=== PATIENT | male | born 1975 | race Caucasian/White ===

== ENCOUNTER 2018-08-04 21:05 | Emergency (ER) | payer MEDICAID, OTHER ==
[~2018-08-04] VITALS: Ht 160 cm; Wt 71.3 kg
[2018-08-04 21:16] VITALS: Ht 160 cm; Wt 71.3 kg
--- NOTE | 2018-08-04 22:11 | ERD ---
ER Documentation Chief Complaint Chief Complaint chest pain x 3 days; worse today; does not radiate anywhere; no medical hx HPI Is a 42-year-old male who presents for evaluation of chest pain for the last 3 days. He endorses that the pain is left-sided, nonradiating, is constant, feels like there is "air," in that area. He has not had any trauma, etc. and improved pain, he has no exertional symptoms, he has had not had a fever. He has no cardiac history and no history of diabetes. ROS All systems reviewed and are negative except as per history of present illness. Allergies Allergies: Coded Allergies: No Known Allergy (Unverified , 02/26/12) PMhx/Soc History of Surgery: No Anesthesia Reaction: No Hx Neurological Disorder: No Hx Respiratory Disorders: No Hx Cardiac Disorders: No Hx Psychiatric Problems: No Hx Miscellaneous Medical Probl: No (NO KNOWN MEDICAL CONDITION) Hx Alcohol Use: No Hx Substance Use: No Hx Tobacco Use: No Physical Exam Vitals Vital Signs Date Temp Pulse Resp B/P (MAP) Pulse Ox O2 O2 Flow FiO2 Time Delivery Rate 08/04/18 73 18 107/73 95 Room Air 22:02 (84) 08/04/18 98.1 78 18 119/72 96 21:16 (88) Physical Exam Const: No acute distress Head: Atraumatic Eyes: Normal Conjunctiva ENT: Normal External Ears, Nose and Mouth. Neck: Full range of motion. No meningismus. Resp: Clear to auscultation bilaterally Cardio: Regular rate and rhythm, no murmurs Abd: Soft, non tender, non distended. Normal bowel sounds Skin: No petechiae or rashes Back: No midline or flank tenderness Ext: No cyanosis, or edema Neur: Awake and alert Psych: Normal Mood and Affect Result Diagram: 08/04/187 08/04/182216 Results 24 hrs Laboratory Tests Test 08/04/18 22:17 White Blood Count 10.1 10^3/ul Red Blood Count 4.51 10^6/ul Hemoglobin 14.0 g/dl Hematocrit 41.8 % Mean Corpuscular Volume 92.7 fl Mean Corpuscular Hemoglobin 31.0 pg Mean Corpuscular Hemoglobin Concent 33.5 g/dl Red Cell Distribution Width 12.5 % Platelet Count 296 10^3/UL Mean Platelet Volume 10.0 fl Immature Granulocytes % 0.300 % Neutrophils % 40.5 % Lymphocytes % 39.6 % Monocytes % 5.6 % Eosinophils % 13.4 % Basophils % 0.6 % Nucleated Red Blood Cells % 0.0 /100WBC Immature Granulocytes # 0.030 10^3/ul Neutrophils # 4.1 10^3/ul Lymphocytes # 4.0 10^3/ul Monocytes # 0.6 10^3/ul Eosinophils # 1.4 10^3/ul Basophils # 0.1 10^3/ul Nucleated Red Blood Cells # 0.0 10^3/ul Prothrombin Time 11.8 Sec Prothrombin Time Ratio 0.9 INR International Normalized Ratio 0.86 Sodium Level 141 mmol/L Potassium Level Pending Chloride Level 103 mmol/L Carbon Dioxide Level 28 mmol/L Anion Gap 10 Blood Urea Nitrogen 19 mg/dl Creatinine 0.95 mg/dl Est Glomerular Filtrat Rate mL/min > 60 mL/min Glucose Level 101 mg/dl Calcium Level 9.4 mg/dl Total Bilirubin 0.1 mg/dl Direct Bilirubin 0.00 mg/dl Indirect Bilirubin 0.1 mg/dl Aspartate Amino Transf (AST/SGOT) 18 IU/L Alanine Aminotransferase (ALT/SGPT) 28 IU/L Alkaline Phosphatase 93 IU/L Troponin I < 0.012 ng/ml Total Protein 7.6 g/dl Albumin 4.2 g/dl Globulin 3.40 g/dl Albumin/Globulin Ratio 1.23 Lipase 75 U/L Procedures/MDM 42-year-old male who presents for evaluation of chest pain. His pain, is reproducible on exam, there is no exertional quality, and his EKG showed no evidence of ischemia. At this point have a low suspicion for acute coronary syndrome, chest x-ray did not show any signs of a pneumothorax. His troponin was negative in the ED, patient felt comfortable with outpatient follow-up with his PMD, for further cardiac evaluation if warranted. Advised to return for any changes in the chest pain, any exertional symptoms, or any other concerns, at discharge patient with no acute distress. EKG: Rate/Rhythm: Normal Sinus Rhythm QRS, ST, T-waves: No changes consistent w/ acute ischemia Impression: No evidence of ischemia or arrhythmia Departure Diagnosis: Primary Impression: Chest pain Chest pain type: unspecified Qualified Codes: R07.9 - Chest pain, unspecified Condition: JELENA Briseno MD Aug 04, 2018 22:11
[2018-08-05 02:55] VITALS: BP 102/68; PULSE 66; RESP 14
== END 2018-08-05 02:55 | disposition home or self-care (01) ==
LOC: E/R 21:05
DX: R07.9 Chest pain, unspecified (principal)
CPT/HCPCS: 36415; 71045; 80053; 83690; 84484; 85025; 85610; 93005; Z7502; Z7610